=== PATIENT | male | born 1960 | race Caucasian/White ===

== ENCOUNTER 2016-09-14 09:54 | Emergency (ER) | payer OTHER ==
[~2016-09-14] VITALS: Ht 175.3 cm; Wt 74.4 kg
[~2016-09-14 09:54] MED LIST: DAILY VITE1 EAC1 PO; DICYCLOMINE HCL20 MG PO; DOCUSATE SODIU100 MG PO; HUMIRA40 MG/0.1 PO; LEUCOVORIN CALCI5 MG PO; MIRALAX17 GM PO; TREXALL7.5 MG PO
[2016-09-14 10:41] LABS: EOSINOPHIL (%) 3.4 % (0-5); EOSINOPHIL COUNT 0.4 K/uL (0-0.3); HEMATOCRIT 41.7 % (38.0-50.0); IMMATURE GRANULOCYTE (%) 0.2 % (0.0-0.7); IMMATURE GRANULOCYTE COUNT 0.2 K/uL; LYMPHOCYTE COUNT 1.9 K/uL (1.0-2.8); MCH 30.4 PG (29.0-34.0); MCHC 34.5 G/DL (30.0-36.0); MCV 88.2 FL (86-99); MEAN PLAT.VOLUME 10.8 uM^3 (9.0-12.4); MONOCYTE (%) 6.2 % (3-12); MONOCYTE COUNT 0.8 K/uL (0-0.8); NEUTROPHIL (%) 75.4 % (45-76); NEUTROPHIL COUNT 9.7 K/uL (1.8-6.4); PLATELET COUNT 274 K/uL (156-360); RBC DIS.WIDTH-CV 13.4 % (11.8-14.6); RBC DIS.WIDTH-SD 42.4 % (39-53); RED BLOOD COUNT 4.73 M/uL (4.00-5.50); WHITE BLOOD COUNT 12.8 K/uL (4.1-10.2)
[2016-09-14 10:50] LABS: CHLORIDE 109 mEq/L (99-109); POTASSIUM 4.5 mEq/L (3.7-5.4); SODIUM 141 mEq/L (136-147)
[2016-09-14 10:52] LABS: GLUCOSE 92 mg/dL (70-99)
[2016-09-14 10:53] LABS: ANION GAP 10 MEQ/L (2-14)
[2016-09-14 10:54] LABS: D-DIMER ELISA 0.38 mg/L FEU (< 0.57); TOTAL BILIRUBIN 0.2 mg/dL (0.0-1.0)
[2016-09-14 10:55] LABS: ALKALINE PHOSPHATASE 69 IU/L (3-129)
[2016-09-14 10:56] LABS: GFR ESTIMATE (CALCULATED) > 59 mL/min/
[2016-09-14 10:57] LABS: UREA NITROGEN (BUN) 16 mg/dL (9-23)
[2016-09-14 11:01] LABS: TROP-I INTERPRETATION NEGATIVE; TROPONIN-I < 0.01 ng/mL (0.0-0.30)
[2016-09-14 16:11] LABS: TROP-I INTERPRETATION NEGATIVE; TROPONIN-I < 0.01 ng/mL (0.0-0.30)
[2016-09-14] MEDS ORDERED: LORTAB 5-325 M1 EACH PO (16:26)
[2016-09-14] MEDS ORDERED: MEDROL DOSEPAK4 MG PO (16:26)
[2016-09-14 16:46] VITALS: BP 141/94
== END 2016-09-14 16:54 | disposition home or self-care (01) ==
LOC: EME 09:54
PROVIDERS: Emergency Medicine
DX: R09.1 Pleurisy (principal); R10.9 Unspecified abdominal pain; F17.200 Nicotine dependence, unspecified, uncomplicated
CPT/HCPCS: 71010; 71275; 74177; 80053; 83880; 84484; 85025; 85379; 93005; 99281; 99285; J1100; J1885; J2270; J2405; J7040

== ENCOUNTER 2017-03-03 08:37 | Emergency (ER) | payer OTHER ==
[~2017-03-03] VITALS: Ht 177.8 cm; Wt 70.5 kg
[~2017-03-03 08:37] MED LIST changes: +LORTAB 5-325 M1 EACH PO; +MEDROL DOSEPAK4 MG PO
[2017-03-03 09:40] LABS: EOSINOPHIL (%) 2.8 % (0-5); EOSINOPHIL COUNT 0.2 K/uL (0-0.3); HEMATOCRIT 44.3 % (38.0-50.0); IMMATURE GRANULOCYTE (%) 0.2 % (0.0-0.7); LYMPHOCYTE COUNT 1.9 K/uL (1.0-2.8); MCH 30.3 PG (29.0-34.0); MCHC 34.8 G/DL (30.0-36.0); MCV 87.2 FL (86-99); MEAN PLAT.VOLUME 10.4 uM^3 (9.0-12.4); MONOCYTE (%) 12.7 % (3-12); NEUTROPHIL (%) 60.9 % (45-76); PLATELET COUNT 257 K/uL (156-360); RBC DIS.WIDTH-CV 12.8 % (11.8-14.6); RBC DIS.WIDTH-SD 40.7 % (39-53); RED BLOOD COUNT 5.08 M/uL (4.00-5.50); WHITE BLOOD COUNT 8.2 K/uL (4.1-10.2)
[2017-03-03 09:51] LABS: CHLORIDE 104 mEq/L (99-109); POTASSIUM 4.2 mEq/L (3.7-5.4); SODIUM 137 mEq/L (136-147)
[2017-03-03 09:53] LABS: GLUCOSE 105 mg/dL (70-99)
[2017-03-03 09:55] LABS: ANION GAP 11 MEQ/L (2-14); TOTAL BILIRUBIN 0.6 mg/dL (0.0-1.0)
[2017-03-03 09:57] LABS: ALKALINE PHOSPHATASE 79 IU/L (3-129); GFR ESTIMATE (CALCULATED) > 59 mL/min/
[2017-03-03 09:58] LABS: UREA NITROGEN (BUN) 16 mg/dL (9-23)
[2017-03-03 10:01] LABS: LIPASE 13 U/L (1.0-51.0)
[2017-03-03] MEDS ORDERED: ZOFRAN4 MG PO (12:39)
[2017-03-03 12:56] VITALS: BP 182/70
== END 2017-03-03 13:00 | disposition home or self-care (01) ==
LOC: EME 08:37
PROVIDERS: Emergency Medicine
DX: R51 Headache (principal); R11.0 Nausea; R10.9 Unspecified abdominal pain; Z87.891 Personal history of nicotine dependence
CPT/HCPCS: 70450; 80053; 83690; 85025; 99281; 99285; J1885; J2405; J7030